=== PATIENT | female | born 1945 | race Caucasian/White ===

== ENCOUNTER 2017-06-05 11:12 | Emergency (ER) | payer MEDICARE ==
[2017-06-05] MEDS ORDERED: HYDROcodone/Acetaminophen 10/325 mg Tablet ONE (11:21)
--- NOTE | 2017-06-05 15:51 | RAD ---
RIGHT ANKLE THREE VIEWS: Date: 06-05-17 FINDINGS: A fracture of the distal fibula at the lateral malleolus is present with lateral displacement of the distal fragment. Additionally, there is a fracture through the distal tibia that extends into the t ibiotalar joint. There is slight displacement of this fracture. The calcaneus appears intact. A calc aneal spur is seen. IMPRESSION: Fractures of the distal tibia and fibula. POS: HOME
--- NOTE | 2017-06-05 15:55 | RAD ---
RIGHT KNEE FOUR VIEWS: Date: 06-05-17 FINDINGS: No acute fracture or joint effusion was seen. Small osteophytes are seen in the patellofemoral joint as well as some very ones in the knee joint itself. One of the oblique views had some unusual lines along the lateral tibial plateau, but in the absent of joint fluid it is difficult for me to believ e that these are acute. It would take an MRI to fully assess the patient's knee and that should be c onsidered if there is continued pain here. IMPRESSION: Probably no acute findings. POS: HOME
== END 2017-06-05 12:20 | disposition home or self-care (01) ==
LOC: BURERS 11:12
DX: S82.841A Displaced bimalleolar fracture of right lower leg, initial encounter for closed fracture (principal); E11.9 Type 2 diabetes mellitus without complications; I10 Essential (primary) hypertension; J45.909 Unspecified asthma, uncomplicated; F32.9 Major depressive disorder, single episode, unspecified; Z79.84 Long term (current) use of oral hypoglycemic drugs; Z79.899 Other long term (current) drug therapy; W22.09XA Striking against other stationary object, initial encounter

== ENCOUNTER 2018-11-28 23:42 | Emergency (ER) | payer MEDICARE ==
[2018-11-29] MEDS ORDERED: Nitroglycerin 50 MG/250 ML BOT 250 ML ONE (00:14)
[2018-11-29 00:32] LABS: Hemoglobin 10.9 g/dL (12.0-16.0); Mean Corpuscular HGB CONC 31.3 g/dL (32.0-36.0); Mean Corpuscular Volume 86.5 fL (78.0-98.0); Mean Platelet Volume 8.6 fL (7.4-10.4); Platelet Count 317 thou/uL (130-400); RBC Distribution Width 16.6 % (11.5-14.5); Red Blood Cell (RBC) Count 4.02 mill/uL (4.20-5.40); White Blood Cell (WBC) Count 8.6 thou/uL (4.8-10.8)
[2018-11-29 00:38] LABS: AST (SGOT) 17 U/L (5-34); Albumin 4.2 g/dL (3.4-4.8); Alkaline Phosphatase 187 U/L (40-150); Anion Gap 15 mmol/L (10-20); BUN (Urea Nitrogen) 30 mg/dL (9.8-20.1); Bilirubin, Total Less than 0.2 mg/dL (0.2-1.2); Calc. Creatinine Clearance 0 mL/min (70-130); Calcium 9.3 mg/dL (7.8-10.44); Carbon Dioxide 23 mmol/L (23-31); Chloride 104 mmol/L (98-107); Estimated GFR-MDRD 48; Globulin 3.3 g/dL (2.4-3.5); Glucose 197 mg/dL (83-110); Lipase 21 U/L (8-78); Potassium 4.3 mmol/L (3.5-5.1); Protein, Total 7.5 g/dL (6.0-8.3); Sodium 138 mmol/L (136-145)
[2018-11-29 00:49] LABS: Manual Diff?? YES
[2018-11-29 00:50] LABS: Anisocytosis SLIGHT = 6-15 cells (100X) (0-5/hpf); Band 2 % (5-11); Eosinophils 1 % (0-10); Hypochromia SLIGHT = 6-15 cells (100X) (0-5/hpf); Lymphocytes 47 % (21-51); Monocytes 3 % (0-10); Neutrophil 47 % (42-75); Platelet Morphology Comment Appears Adequate
[2018-11-29 00:51] LABS: MDiff Complete? YES
[2018-11-29 01:03] LABS: ALT (SGPT) 8 U/L (8-55)
--- NOTE | 2018-11-29 08:05 | RAD ---
PORTABLE CHEST: DATE: 11/29/2018. FINDINGS: An AP portable film at 0013 shows a normal-sized heart and clear lungs. No infiltrate or effusion wa s seen. There is no vascular congestion or edema. A calcified granuloma is noted in the left mid amandeep ng. IMPRESSION: No acute findings. POS: HOME
== END 2018-11-29 01:15 | disposition short-term general hospital (02) ==
LOC: BURERS 23:42
DX: R07.2 Precordial pain (principal); E11.9 Type 2 diabetes mellitus without complications; I10 Essential (primary) hypertension; J45.909 Unspecified asthma, uncomplicated; I49.9 Cardiac arrhythmia, unspecified; K21.9 Gastro-esophageal reflux disease without esophagitis; F32.9 Major depressive disorder, single episode, unspecified; Z79.82 Long term (current) use of aspirin; Z79.899 Other long term (current) drug therapy; Z79.84 Long term (current) use of oral hypoglycemic drugs
CPT/HCPCS: 36416; 71045; 80053; 83690; 84484; 85025; 85379; 93005; 94760; 96374

== ENCOUNTER 2022-06-18 21:03 | Emergency (ER) | payer MEDICARE ==
[2022-06-18] MEDS ORDERED: Morphine 2 MG/ML VIAL ONE ×2 (21:27→23:21)
[2022-06-18] MEDS ORDERED: Ondansetron ODT 4 MG TAB ONE (21:27)
[2022-06-18] MEDS ORDERED: Fentanyl 100 MCG/2 ML VIAL ONE (22:15)
[2022-06-18 22:17] LABS: #Basophils 0.1 thou/uL (0.0-0.2); #Eosinphils 0.2 thou/uL (0.0-0.7); #Lymphocytes 4.3 thou/uL (1.20-3.40); #Monocytes 1.1 thou/uL (0.11-0.59); %Basophils 0.7 % (0.0-1.0); %Eosinophils 0.9 % (0.0-10.0); %Lymphocytes 25.8 % (21.0-51.0); %Monocytes 6.8 % (0.0-10.0); %Neutrophils 65.8 % (42.0-75.0); ALT (SGPT) 21 U/L (8-55); AST (SGOT) 23 U/L (5-34); Albumin 4.2 g/dL (3.4-4.8); Alkaline Phosphatase 113 U/L (40-110); Anion Gap 18 mmol/L (10-20); BUN (Urea Nitrogen) 19 mg/dL (9.8-20.1); Bilirubin, Total 0.3 mg/dL (0.2-1.2); Calc. Creatinine Clearance 0 mL/min (70-130); Calcium 9.2 mg/dL (7.8-10.44); Carbon Dioxide 21 mmol/L (23-31); Chloride 105 mmol/L (98-107); Estimated GFR 65; Globulin 3.4 g/dL (2.4-3.5); Glucose 180 mg/dL (83-110); Hemoglobin 12.8 g/dL (12.0-16.0); Mean Corpuscular Hemoglobin 29.4 pg (27.0-31.0); Mean Corpuscular Volume 91.8 fl (78.0-98.0); Mean Platelet Volume 8.3 fL (7.4-10.4); Platelet Count 306 10x3/uL (130-400); Potassium 4.4 mmol/L (3.5-5.1); Protein, Total 7.6 g/dL (5.8-8.1); RBC Distribution Width 13.1 % (11.5-14.5); Red Blood Cell (RBC) Count 4.34 mill/uL (4.20-5.40); Sodium 140 mmol/L (136-145); White Blood Cell (WBC) Count 16.7 10x3/uL (4.8-10.8)
[2022-06-18] MEDS ORDERED: Ondansetron PF 4 MG/2 ML Vial ONE (22:54)
== END 2022-06-18 23:50 | disposition short-term general hospital (02) ==
LOC: BURERS 21:03
DX: S52.501A Unspecified fracture of the lower end of right radius, initial encounter for closed fracture (principal); S72.001A Fracture of unspecified part of neck of right femur, initial encounter for closed fracture; S00.03XA Contusion of scalp, initial encounter; E11.9 Type 2 diabetes mellitus without complications; I10 Essential (primary) hypertension; W17.89XA Other fall from one level to another, initial encounter
CPT/HCPCS: 25600; 51702; 70450; 73110; 73502; 80053; 85025; 96372; 96374; 96375; 99285; J2270; 36415; J2405; J3010; Q0162

== ENCOUNTER 2022-06-25 10:40 | Inpatient (IN) | payer MEDICARE ==
[2022-06-25 16:56] VITALS: BMI 27.5
[2022-06-25] MEDS ORDERED: Ibuprofen 200 MG TAB PO SCH (21:15)
[2022-06-25] MEDS ORDERED: Bisacodyl 10 MG SUPP PR PRN (22:52)
[2022-06-25] MEDS ORDERED: CLIDINIUM BR PO PRN (22:52)
[2022-06-25] MEDS ORDERED: CHLORDIAZEPOXIDE PO PRN (22:52)
[2022-06-25] MEDS ORDERED: Dextrose 50% Abboject 50 ML SYRINGE SLOW IVP PRN (22:57)
[2022-06-25] MEDS ORDERED: Dextrose 5% in Water 1,000 ML IV PRN (22:57)
[2022-06-25] MEDS: diphenhydrAMINE 25 MG CAP PO PRN (23:27)
[2022-06-25] MEDS: Acetaminophen 500 MG TAB PO SCH (23:27)
[2022-06-26] MEDS: Acetaminophen 500 MG TAB PO SCH ×4 (05:34→23:58)
[2022-06-26] MEDS: Sertraline 25 MG TAB PO SCH (10:01)
[2022-06-26] MEDS: Gabapentin 100 MG CAP PO SCH ×3 (10:02→21:14)
[2022-06-26] MEDS: Aspirin 81 mg Enteric Coated Tablet PO SCH ×2 (10:03→21:10)
[2022-06-26] MEDS: Ibuprofen 200 MG TAB PO SCH ×3 (10:03→17:36)
[2022-06-26] MEDS: Amlodipine 5 MG TAB PO SCH (10:04)
[2022-06-26] MEDS: Ascorbic Acid 500 mg Chewable Tablet PO SCH (10:06)
[2022-06-26] MEDS: Ferrous Sulfate 325 MG TAB PO SCH (10:06)
[2022-06-26] MEDS: glipiZIDE 5 MG TAB PO SCH ×2 (10:07→17:38)
[2022-06-26] MEDS: Senokot S 8.6-50 MG TAB PO SCH ×2 (10:07→21:10)
[2022-06-26] MEDS: Calcium Carbonate 500 MG TAB PO SCH (10:07)
[2022-06-26] MEDS: Zinc Sulfate 220 MG CAP PO SCH (10:08)
[2022-06-26] MEDS: Lisinopril 20 MG TAB PO SCH (10:08)
[2022-06-26] MEDS: metFORMIN 500 MG TAB PO SCH ×2 (10:10→17:37)
[2022-06-26] MEDS: Atorvastatin Calcium 10 MG TAB PO SCH (10:24)
[2022-06-26] MEDS: HumaLOG 300 UNITS/3 ML VIAL SC PRN ×2 (11:54→13:54)
[2022-06-26] MEDS: Hydrocortisone 1% Cream 30 GM TUBE TOP SCH ×2 (12:16→21:10)
[2022-06-26] MEDS: (Mecobalamin [B12 Active] 1,000 MCG Tab.Chew) PO SCH (12:16)
[2022-06-26] MEDS: Melatonin 3 MG TAB PO SCH (21:10)
[2022-06-27] MEDS: Acetaminophen 500 MG TAB PO SCH ×3 (05:48→17:33)
[2022-06-27] MEDS: Ibuprofen 200 MG TAB PO SCH ×3 (09:31→17:26)
[2022-06-27] MEDS: glipiZIDE 5 MG TAB PO SCH ×2 (09:32→17:27)
[2022-06-27] MEDS: Gabapentin 100 MG CAP PO SCH ×3 (09:34→20:53)
[2022-06-27] MEDS: Sertraline 25 MG TAB PO SCH (09:35)
[2022-06-27] MEDS: Ascorbic Acid 500 mg Chewable Tablet PO SCH (09:35)
[2022-06-27] MEDS: Calcium Carbonate 500 MG TAB PO SCH (09:36)
[2022-06-27] MEDS: Ferrous Sulfate 325 MG TAB PO SCH (09:37)
[2022-06-27] MEDS: metFORMIN 500 MG TAB PO SCH ×2 (09:37→17:26)
[2022-06-27] MEDS: Zinc Sulfate 220 MG CAP PO SCH (09:38)
[2022-06-27] MEDS: Senokot S 8.6-50 MG TAB PO SCH ×2 (09:38→20:52)
[2022-06-27] MEDS: Atorvastatin Calcium 10 MG TAB PO SCH (10:19)
[2022-06-27] MEDS: Aspirin 81 mg Enteric Coated Tablet PO SCH ×2 (10:19→20:52)
[2022-06-27] MEDS: Amlodipine 5 MG TAB PO SCH (10:20)
[2022-06-27] MEDS: Lisinopril 20 MG TAB PO SCH (10:23)
[2022-06-27] MEDS: (Mecobalamin [B12 Active] 1,000 MCG Tab.Chew) PO SCH (10:30)
[2022-06-27] MEDS: HumaLOG 300 UNITS/3 ML VIAL SC PRN ×4 (10:35→20:54)
[2022-06-27] MEDS: Hydrocortisone 1% Cream 30 GM TUBE TOP SCH (10:40)
[2022-06-27] MEDS: Melatonin 3 MG TAB PO SCH (20:52)
[2022-06-28] MEDS: Acetaminophen 500 MG TAB PO SCH ×5 (00:13→23:57)
[2022-06-28] MEDS: Hydrocortisone 1% Cream 30 GM TUBE TOP SCH ×3 (00:28→21:03)
[2022-06-28] MEDS: Cyclobenzaprine 10 MG TAB PO PRN ×3 (00:31→20:56)
[2022-06-28] MEDS: Ibuprofen 200 MG TAB PO SCH ×3 (08:58→17:00)
[2022-06-28] MEDS: metFORMIN 500 MG TAB PO SCH ×2 (08:58→17:01)
[2022-06-28] MEDS: Amlodipine 5 MG TAB PO SCH (09:00)
[2022-06-28] MEDS: Sertraline 25 MG TAB PO SCH (09:01)
[2022-06-28] MEDS: Ferrous Sulfate 325 MG TAB PO SCH (09:02)
[2022-06-28] MEDS: Gabapentin 100 MG CAP PO SCH ×3 (09:02→20:56)
[2022-06-28] MEDS: Ascorbic Acid 500 mg Chewable Tablet PO SCH (09:02)
[2022-06-28] MEDS: Aspirin 81 mg Enteric Coated Tablet PO SCH ×2 (09:02→20:57)
[2022-06-28] MEDS: Calcium Carbonate 500 MG TAB PO SCH (09:02)
[2022-06-28] MEDS: glipiZIDE 5 MG TAB PO SCH ×2 (09:02→17:01)
[2022-06-28] MEDS: Zinc Sulfate 220 MG CAP PO SCH (09:02)
[2022-06-28] MEDS: Atorvastatin Calcium 10 MG TAB PO SCH (09:02)
[2022-06-28] MEDS: Lisinopril 20 MG TAB PO SCH (09:03)
[2022-06-28] MEDS: (Mecobalamin [B12 Active] 1,000 MCG Tab.Chew) PO SCH (09:04)
[2022-06-28] MEDS: Senokot S 8.6-50 MG TAB PO SCH ×2 (09:04→20:56)
[2022-06-28] MEDS: HumaLOG 300 UNITS/3 ML VIAL SC PRN ×3 (09:05→17:01)
[2022-06-28] MEDS: Melatonin 3 MG TAB PO SCH (20:57)
[2022-06-29] MEDS: Acetaminophen 500 MG TAB PO SCH ×4 (05:39→23:13)
[2022-06-29] MEDS: Senokot S 8.6-50 MG TAB PO SCH ×2 (09:11→21:41)
[2022-06-29] MEDS: Sertraline 25 MG TAB PO SCH (09:12)
[2022-06-29] MEDS: Ibuprofen 200 MG TAB PO SCH ×3 (09:12→17:15)
[2022-06-29] MEDS: metFORMIN 500 MG TAB PO SCH ×2 (09:13→17:15)
[2022-06-29] MEDS: Calcium Carbonate 500 MG TAB PO SCH (09:13)
[2022-06-29] MEDS: Lisinopril 20 MG TAB PO SCH (09:13)
[2022-06-29] MEDS: Amlodipine 5 MG TAB PO SCH (09:14)
[2022-06-29] MEDS: Gabapentin 100 MG CAP PO SCH ×3 (09:15→21:40)
[2022-06-29] MEDS: Aspirin 81 mg Enteric Coated Tablet PO SCH ×2 (09:16→21:42)
[2022-06-29] MEDS: Ferrous Sulfate 325 MG TAB PO SCH (09:16)
[2022-06-29] MEDS: Zinc Sulfate 220 MG CAP PO SCH (09:16)
[2022-06-29] MEDS: glipiZIDE 5 MG TAB PO SCH ×2 (09:16→17:15)
[2022-06-29] MEDS: Ascorbic Acid 500 mg Chewable Tablet PO SCH (09:16)
[2022-06-29] MEDS: (Mecobalamin [B12 Active] 1,000 MCG Tab.Chew) PO SCH (09:17)
[2022-06-29] MEDS: Atorvastatin Calcium 10 MG TAB PO SCH (09:24)
[2022-06-29] MEDS: HumaLOG 300 UNITS/3 ML VIAL SC PRN ×3 (12:06→21:39)
[2022-06-29] MEDS: Hydrocortisone 1% Cream 30 GM TUBE TOP SCH ×2 (14:56→21:40)
[2022-06-29] MEDS: Melatonin 3 MG TAB PO SCH (21:42)
[2022-06-29] MEDS: Cyclobenzaprine 10 MG TAB PO PRN (23:14)
[2022-06-30] MEDS: Acetaminophen 500 MG TAB PO SCH ×4 (05:47→23:05)
[2022-06-30] MEDS: Sertraline 100 MG TAB PO SCH (09:12)
[2022-06-30] MEDS: Atorvastatin Calcium 10 MG TAB PO SCH (09:13)
[2022-06-30] MEDS: Gabapentin 100 MG CAP PO SCH ×3 (09:13→20:36)
[2022-06-30] MEDS: Ferrous Sulfate 325 MG TAB PO SCH (09:13)
[2022-06-30] MEDS: metFORMIN 500 MG TAB PO SCH ×2 (09:13→17:15)
[2022-06-30] MEDS: Hydrocortisone 1% Cream 30 GM TUBE TOP SCH ×2 (09:13→20:38)
[2022-06-30] MEDS: Zinc Sulfate 220 MG CAP PO SCH (09:14)
[2022-06-30] MEDS: Lisinopril 20 MG TAB PO SCH (09:14)
[2022-06-30] MEDS: Ibuprofen 200 MG TAB PO SCH ×3 (09:14→17:14)
[2022-06-30] MEDS: Amlodipine 5 MG TAB PO SCH (09:15)
[2022-06-30] MEDS: Senokot S 8.6-50 MG TAB PO SCH ×2 (09:15→20:38)
[2022-06-30] MEDS: Ascorbic Acid 500 mg Chewable Tablet PO SCH (09:15)
[2022-06-30] MEDS: Aspirin 81 mg Enteric Coated Tablet PO SCH ×2 (09:15→20:35)
[2022-06-30] MEDS: glipiZIDE 5 MG TAB PO SCH ×2 (09:17→17:15)
[2022-06-30] MEDS: Calcium Carbonate 500 MG TAB PO SCH (09:17)
[2022-06-30] MEDS: HumaLOG 300 UNITS/3 ML VIAL SC PRN ×2 (09:21→12:11)
[2022-06-30 17:27] LABS: Bilirubin Negative (Negative); Blood, Urine Small (Negative); Clarity Slightly Cloudy (Clear); Glucose, Urine (Dipstick) Negative (Negative); Ketone, Urine Trace mg/dL (Negative); Leukocyte Large (Negative); Nitrite Positive (Negative); Protein, Urine (Dipstick) 30 mg/dL (Neg-Trace); Specific Gravity, Urine 1.015 (1.005-1.030); Urobilinogen 0.2 mg/dL (Less than 2); pH, Urine 5.5 (5.0-9.0)
[2022-06-30 17:36] LABS: Bacteria/HPF 4+ HPF (None Seen)
[2022-06-30] MEDS ORDERED: Albuterol Sulfate 2.5 mg/3 ml Neb NEB PRN (20:21)
[2022-06-30] MEDS: Sulfameth/Trimethoprim DS 800-160mg TAB PO SCH (20:35)
[2022-06-30] MEDS: Cyclobenzaprine 10 MG TAB PO PRN (20:35)
[2022-06-30] MEDS: Melatonin 3 MG TAB PO SCH (20:37)
[2022-06-30] MEDS: Nystatin 500,000 UNITS/5 ML UDCUP SSW SCH (23:05)
[2022-07-01] MEDS: diphenhydrAMINE 25 MG CAP PO PRN (00:25)
[2022-07-01] MEDS: Cyclobenzaprine 10 MG TAB PO PRN (02:40)
[2022-07-01] MEDS: Acetaminophen 500 MG TAB PO SCH ×4 (05:43→23:12)
[2022-07-01] MEDS: metFORMIN 500 MG TAB PO SCH ×2 (09:04→17:41)
[2022-07-01] MEDS: Lisinopril 20 MG TAB PO SCH (09:04)
[2022-07-01] MEDS: Aspirin 81 mg Enteric Coated Tablet PO SCH ×2 (09:04→20:23)
[2022-07-01] MEDS: Ibuprofen 200 MG TAB PO SCH ×3 (09:04→17:42)
[2022-07-01] MEDS: Amlodipine 5 MG TAB PO SCH (09:06)
[2022-07-01] MEDS: Calcium Carbonate 500 MG TAB PO SCH (09:07)
[2022-07-01] MEDS: Senokot S 8.6-50 MG TAB PO SCH ×2 (09:07→20:23)
[2022-07-01] MEDS: Atorvastatin Calcium 10 MG TAB PO SCH (09:07)
[2022-07-01] MEDS: glipiZIDE 5 MG TAB PO SCH ×2 (09:08→17:41)
[2022-07-01] MEDS: Sertraline 100 MG TAB PO SCH (09:08)
[2022-07-01] MEDS: Sulfameth/Trimethoprim DS 800-160mg TAB PO SCH ×2 (09:09→20:24)
[2022-07-01] MEDS: Zinc Sulfate 220 MG CAP PO SCH (09:09)
[2022-07-01] MEDS: Ascorbic Acid 500 mg Chewable Tablet PO SCH (09:09)
[2022-07-01] MEDS: Ferrous Sulfate 325 MG TAB PO SCH (09:09)
[2022-07-01] MEDS: Gabapentin 100 MG CAP PO SCH ×3 (09:12→20:24)
[2022-07-01] MEDS: Hydrocortisone 1% Cream 30 GM TUBE TOP SCH ×2 (09:13→20:22)
[2022-07-01] MEDS: Nystatin 500,000 UNITS/5 ML UDCUP SSW SCH ×4 (09:14→20:23)
[2022-07-01] MEDS: HumaLOG 300 UNITS/3 ML VIAL SC PRN ×3 (09:47→20:25)
[2022-07-01] MEDS: Melatonin 3 MG TAB PO SCH (20:23)
[2022-07-02] MEDS: Cyclobenzaprine 10 MG TAB PO PRN (01:11)
[2022-07-02] MEDS: diphenhydrAMINE 25 MG CAP PO PRN ×2 (02:34→22:25)
[2022-07-02] MEDS: Acetaminophen 500 MG TAB PO SCH ×5 (06:24→22:26)
[2022-07-02] MEDS: HumaLOG 300 UNITS/3 ML VIAL SC PRN ×2 (09:26→12:05)
[2022-07-02] MEDS: Hydrocortisone 1% Cream 30 GM TUBE TOP SCH ×2 (09:27→20:52)
[2022-07-02] MEDS: Sertraline 100 MG TAB PO SCH (09:27)
[2022-07-02] MEDS: Ibuprofen 200 MG TAB PO SCH ×3 (09:28→17:15)
[2022-07-02] MEDS: Aspirin 81 mg Enteric Coated Tablet PO SCH ×2 (09:28→20:55)
[2022-07-02] MEDS: Senokot S 8.6-50 MG TAB PO SCH ×2 (09:30→20:56)
[2022-07-02] MEDS: Calcium Carbonate 500 MG TAB PO SCH (09:30)
[2022-07-02] MEDS: Ferrous Sulfate 325 MG TAB PO SCH (09:30)
[2022-07-02] MEDS: Zinc Sulfate 220 MG CAP PO SCH (09:31)
[2022-07-02] MEDS: Ascorbic Acid 500 mg Chewable Tablet PO SCH (09:31)
[2022-07-02] MEDS: Atorvastatin Calcium 10 MG TAB PO SCH (09:31)
[2022-07-02] MEDS: Sulfameth/Trimethoprim DS 800-160mg TAB PO SCH ×2 (09:31→20:53)
[2022-07-02] MEDS: Amlodipine 5 MG TAB PO SCH (09:32)
[2022-07-02] MEDS: glipiZIDE 5 MG TAB PO SCH ×2 (09:33→17:15)
[2022-07-02] MEDS: metFORMIN 500 MG TAB PO SCH ×2 (09:33→17:15)
[2022-07-02] MEDS: Lisinopril 20 MG TAB PO SCH (09:34)
[2022-07-02] MEDS: Nystatin 500,000 UNITS/5 ML UDCUP SSW SCH ×4 (09:35→20:53)
[2022-07-02] MEDS: Gabapentin 100 MG CAP PO SCH ×3 (12:04→20:54)
[2022-07-02] MEDS: Melatonin 3 MG TAB PO SCH (20:55)
[2022-07-03] MEDS: Acetaminophen 500 MG TAB PO SCH ×4 (05:35→23:06)
[2022-07-03] MEDS ORDERED: Amlodipine 5 MG TAB ONE (10:04)
[2022-07-03] MEDS: Sulfameth/Trimethoprim DS 800-160mg TAB PO SCH ×2 (10:09→20:34)
[2022-07-03] MEDS: glipiZIDE 5 MG TAB PO SCH ×2 (10:09→17:17)
[2022-07-03] MEDS: Nystatin 500,000 UNITS/5 ML UDCUP SSW SCH ×4 (10:10→20:35)
[2022-07-03] MEDS: Calcium Carbonate 500 MG TAB PO SCH (10:10)
[2022-07-03] MEDS: Sertraline 100 MG TAB PO SCH (10:10)
[2022-07-03] MEDS: Senokot S 8.6-50 MG TAB PO SCH ×2 (10:10→20:35)
[2022-07-03] MEDS: Aspirin 81 mg Enteric Coated Tablet PO SCH ×2 (10:10→20:34)
[2022-07-03] MEDS: metFORMIN 500 MG TAB PO SCH ×2 (10:10→17:17)
[2022-07-03] MEDS: Ferrous Sulfate 325 MG TAB PO SCH (10:11)
[2022-07-03] MEDS: Amlodipine 5 MG TAB PO SCH (10:11)
[2022-07-03] MEDS: Ascorbic Acid 500 mg Chewable Tablet PO SCH (10:12)
[2022-07-03] MEDS: Atorvastatin Calcium 10 MG TAB PO SCH (10:12)
[2022-07-03] MEDS: Lisinopril 20 MG TAB PO SCH (10:12)
[2022-07-03] MEDS: Ibuprofen 200 MG TAB PO SCH ×3 (10:12→17:18)
[2022-07-03] MEDS: Gabapentin 100 MG CAP PO SCH ×3 (10:13→20:34)
[2022-07-03] MEDS: Zinc Sulfate 220 MG CAP PO SCH (10:14)
[2022-07-03] MEDS: Hydrocortisone 1% Cream 30 GM TUBE TOP SCH ×2 (10:24→20:37)
[2022-07-03] MEDS: HumaLOG 300 UNITS/3 ML VIAL SC PRN (13:00)
[2022-07-03] MEDS: Melatonin 3 MG TAB PO SCH (20:34)
[2022-07-03] MEDS: Cyclobenzaprine 10 MG TAB PO PRN (23:07)
[2022-07-04] MEDS: diphenhydrAMINE 25 MG CAP PO PRN ×2 (02:34→23:08)
[2022-07-04] MEDS: Acetaminophen 500 MG TAB PO SCH ×4 (06:58→23:10)
[2022-07-04] MEDS: Senokot S 8.6-50 MG TAB PO SCH ×2 (07:45→21:15)
[2022-07-04] MEDS ORDERED: Amlodipine 5 MG TAB ONE (08:02)
[2022-07-04] MEDS: HumaLOG 300 UNITS/3 ML VIAL SC PRN ×2 (10:03→12:14)
[2022-07-04] MEDS: Calcium Carbonate 500 MG TAB PO SCH (10:04)
[2022-07-04] MEDS: glipiZIDE 5 MG TAB PO SCH ×2 (10:04→16:44)
[2022-07-04] MEDS: Ferrous Sulfate 325 MG TAB PO SCH (10:04)
[2022-07-04] MEDS: metFORMIN 500 MG TAB PO SCH ×2 (10:04→16:44)
[2022-07-04] MEDS: Sulfameth/Trimethoprim DS 800-160mg TAB PO SCH ×2 (10:04→21:13)
[2022-07-04] MEDS: Ibuprofen 200 MG TAB PO SCH ×3 (10:04→16:44)
[2022-07-04] MEDS: Atorvastatin Calcium 10 MG TAB PO SCH (10:05)
[2022-07-04] MEDS: Gabapentin 100 MG CAP PO SCH ×3 (10:05→21:13)
[2022-07-04] MEDS: Sertraline 100 MG TAB PO SCH (10:06)
[2022-07-04] MEDS: Ascorbic Acid 500 mg Chewable Tablet PO SCH (10:06)
[2022-07-04] MEDS: Aspirin 81 mg Enteric Coated Tablet PO SCH ×2 (10:07→21:13)
[2022-07-04] MEDS: Hydrocortisone 1% Cream 30 GM TUBE TOP SCH ×2 (10:07→21:14)
[2022-07-04] MEDS: Zinc Sulfate 220 MG CAP PO SCH (10:07)
[2022-07-04] MEDS: Nystatin 500,000 UNITS/5 ML UDCUP SSW SCH ×4 (10:07→21:15)
[2022-07-04] MEDS: Amlodipine 5 MG TAB PO SCH (10:13)
[2022-07-04] MEDS: Lisinopril 20 MG TAB PO SCH (10:14)
[2022-07-04] MEDS: Melatonin 3 MG TAB PO SCH (21:13)
[2022-07-05] MEDS: Acetaminophen 500 MG TAB PO SCH ×4 (05:13→23:07)
[2022-07-05] MEDS: Aspirin 81 mg Enteric Coated Tablet PO SCH ×2 (09:00→20:10)
[2022-07-05] MEDS: Calcium Carbonate 500 MG TAB PO SCH (09:00)
[2022-07-05] MEDS: Hydrocortisone 1% Cream 30 GM TUBE TOP SCH ×2 (09:00→20:10)
[2022-07-05] MEDS: glipiZIDE 5 MG TAB PO SCH ×2 (09:00→17:35)
[2022-07-05] MEDS: Amlodipine 5 MG TAB PO SCH (09:01)
[2022-07-05] MEDS: Ferrous Sulfate 325 MG TAB PO SCH (09:04)
[2022-07-05] MEDS: Sulfameth/Trimethoprim DS 800-160mg TAB PO SCH ×2 (09:04→20:09)
[2022-07-05] MEDS: Ibuprofen 200 MG TAB PO SCH ×3 (09:04→17:35)
[2022-07-05] MEDS: Nystatin 500,000 UNITS/5 ML UDCUP SSW SCH ×4 (09:04→20:09)
[2022-07-05] MEDS: Atorvastatin Calcium 10 MG TAB PO SCH (09:05)
[2022-07-05] MEDS: Sertraline 100 MG TAB PO SCH (09:05)
[2022-07-05] MEDS: metFORMIN 500 MG TAB PO SCH ×2 (09:05→17:35)
[2022-07-05] MEDS: Zinc Sulfate 220 MG CAP PO SCH (09:06)
[2022-07-05] MEDS: Lisinopril 20 MG TAB PO SCH (09:06)
[2022-07-05] MEDS: Gabapentin 100 MG CAP PO SCH ×3 (09:06→20:09)
[2022-07-05] MEDS: Ascorbic Acid 500 mg Chewable Tablet PO SCH (09:06)
[2022-07-05] MEDS: Senokot S 8.6-50 MG TAB PO SCH ×2 (09:07→21:00)
[2022-07-05] MEDS: HumaLOG 300 UNITS/3 ML VIAL SC PRN (12:10)
[2022-07-05 15:30] LABS: CAUTI Indications for Culture Pelvic or flank pain
[2022-07-05 15:31] LABS: Urine Culture Reflex Yes Yes
[2022-07-05] MEDS: Melatonin 3 MG TAB PO SCH (20:10)
[2022-07-05] MEDS: diphenhydrAMINE 25 MG CAP PO PRN (23:07)
[2022-07-06] MEDS: Acetaminophen 500 MG TAB PO SCH ×4 (05:09→23:19)
[2022-07-06] MEDS: Amlodipine 5 MG TAB PO SCH (09:20)
[2022-07-06] MEDS: Sertraline 100 MG TAB PO SCH (09:21)
[2022-07-06] MEDS: glipiZIDE 5 MG TAB PO SCH ×2 (09:21→17:20)
[2022-07-06] MEDS: Gabapentin 100 MG CAP PO SCH ×3 (09:22→20:35)
[2022-07-06] MEDS: Calcium Carbonate 500 MG TAB PO SCH (09:23)
[2022-07-06] MEDS: Ibuprofen 200 MG TAB PO SCH ×3 (09:23→17:20)
[2022-07-06] MEDS: Atorvastatin Calcium 10 MG TAB PO SCH (09:23)
[2022-07-06] MEDS: Ferrous Sulfate 325 MG TAB PO SCH (09:24)
[2022-07-06] MEDS: Ascorbic Acid 500 mg Chewable Tablet PO SCH (09:24)
[2022-07-06] MEDS: Aspirin 81 mg Enteric Coated Tablet PO SCH ×2 (09:24→20:35)
[2022-07-06] MEDS: metFORMIN 500 MG TAB PO SCH ×2 (09:24→17:20)
[2022-07-06] MEDS: Zinc Sulfate 220 MG CAP PO SCH (09:24)
[2022-07-06] MEDS: Lisinopril 20 MG TAB PO SCH (09:24)
[2022-07-06] MEDS: Nystatin 500,000 UNITS/5 ML UDCUP SSW SCH ×4 (09:24→20:34)
[2022-07-06] MEDS: Sulfameth/Trimethoprim DS 800-160mg TAB PO SCH ×2 (09:24→20:36)
[2022-07-06] MEDS: Senokot S 8.6-50 MG TAB PO SCH ×2 (09:25→20:37)
[2022-07-06] MEDS: Hydrocortisone 1% Cream 30 GM TUBE TOP SCH ×2 (09:36→20:36)
[2022-07-06] MEDS: HumaLOG 300 UNITS/3 ML VIAL SC PRN (12:52)
[2022-07-06] MEDS: Melatonin 3 MG TAB PO SCH (20:36)
[2022-07-06] MEDS: diphenhydrAMINE 25 MG CAP PO PRN (23:19)
[2022-07-07] MEDS: Acetaminophen 500 MG TAB PO SCH ×3 (05:27→17:11)
[2022-07-07] MEDS: Hydrocortisone 1% Cream 30 GM TUBE TOP SCH ×2 (09:14→21:01)
[2022-07-07] MEDS: Nystatin 500,000 UNITS/5 ML UDCUP SSW SCH ×4 (09:14→21:00)
[2022-07-07] MEDS: Calcium Carbonate 500 MG TAB PO SCH (09:15)
[2022-07-07] MEDS: Senokot S 8.6-50 MG TAB PO SCH ×2 (09:15→21:00)
[2022-07-07] MEDS: Sertraline 100 MG TAB PO SCH (09:15)
[2022-07-07] MEDS: Aspirin 81 mg Enteric Coated Tablet PO SCH ×2 (09:15→21:00)
[2022-07-07] MEDS: Sulfameth/Trimethoprim DS 800-160mg TAB PO SCH ×2 (09:15→21:00)
[2022-07-07] MEDS: Ibuprofen 200 MG TAB PO SCH ×3 (09:16→17:13)
[2022-07-07] MEDS: Zinc Sulfate 220 MG CAP PO SCH (09:17)
[2022-07-07] MEDS: Lisinopril 20 MG TAB PO SCH (09:18)
[2022-07-07] MEDS: Ferrous Sulfate 325 MG TAB PO SCH (09:19)
[2022-07-07] MEDS: Ascorbic Acid 500 mg Chewable Tablet PO SCH (09:19)
[2022-07-07] MEDS: glipiZIDE 5 MG TAB PO SCH ×2 (09:20→17:14)
[2022-07-07] MEDS: metFORMIN 500 MG TAB PO SCH ×2 (09:20→17:14)
[2022-07-07] MEDS: Amlodipine 5 MG TAB PO SCH (09:20)
[2022-07-07] MEDS: Gabapentin 100 MG CAP PO SCH ×3 (09:25→21:00)
[2022-07-07] MEDS: Atorvastatin Calcium 10 MG TAB PO SCH (09:26)
[2022-07-07] MEDS: HumaLOG 300 UNITS/3 ML VIAL SC PRN (12:04)
[2022-07-07] MEDS: Melatonin 3 MG TAB PO SCH (21:00)
[2022-07-08] MEDS: diphenhydrAMINE 25 MG CAP PO PRN (00:10)
[2022-07-08] MEDS: Acetaminophen 500 MG TAB PO SCH ×5 (00:10→23:59)
[2022-07-08] MEDS: Nystatin 500,000 UNITS/5 ML UDCUP SSW SCH ×4 (08:53→21:08)
[2022-07-08] MEDS: Zinc Sulfate 220 MG CAP PO SCH (08:54)
[2022-07-08] MEDS: Sertraline 100 MG TAB PO SCH (08:54)
[2022-07-08] MEDS: Amlodipine 5 MG TAB PO SCH (08:55)
[2022-07-08] MEDS: Aspirin 81 mg Enteric Coated Tablet PO SCH ×2 (08:56→21:06)
[2022-07-08] MEDS: metFORMIN 500 MG TAB PO SCH ×2 (08:56→17:10)
[2022-07-08] MEDS: Senokot S 8.6-50 MG TAB PO SCH ×2 (08:56→21:12)
[2022-07-08] MEDS: Ibuprofen 200 MG TAB PO SCH ×3 (08:56→17:09)
[2022-07-08] MEDS: Lisinopril 20 MG TAB PO SCH (08:56)
[2022-07-08] MEDS: Ascorbic Acid 500 mg Chewable Tablet PO SCH (08:57)
[2022-07-08] MEDS: Atorvastatin Calcium 10 MG TAB PO SCH (08:58)
[2022-07-08] MEDS: glipiZIDE 5 MG TAB PO SCH ×2 (08:58→17:09)
[2022-07-08] MEDS: Sulfameth/Trimethoprim DS 800-160mg TAB PO SCH (08:58)
[2022-07-08] MEDS: Ferrous Sulfate 325 MG TAB PO SCH (08:58)
[2022-07-08] MEDS: Calcium Carbonate 500 MG TAB PO SCH (08:58)
[2022-07-08] MEDS: Hydrocortisone 1% Cream 30 GM TUBE TOP SCH ×2 (08:59→21:07)
[2022-07-08] MEDS: Gabapentin 100 MG CAP PO SCH ×3 (09:11→21:06)
[2022-07-08] MEDS: HumaLOG 300 UNITS/3 ML VIAL SC PRN (12:22)
[2022-07-08] MEDS: Melatonin 3 MG TAB PO SCH (21:06)
[2022-07-09] MEDS: Acetaminophen 500 MG TAB PO SCH ×2 (04:45→11:39)
[2022-07-09 06:29] VITALS: TEMP 98.1
[2022-07-09] MEDS: Nystatin 500,000 UNITS/5 ML UDCUP SSW SCH ×2 (08:43→11:40)
[2022-07-09] MEDS: Zinc Sulfate 220 MG CAP PO SCH (08:44)
[2022-07-09] MEDS: Senokot S 8.6-50 MG TAB PO SCH (08:45)
[2022-07-09] MEDS: Aspirin 81 mg Enteric Coated Tablet PO SCH (08:45)
[2022-07-09] MEDS: Sertraline 100 MG TAB PO SCH (08:46)
[2022-07-09] MEDS: Amlodipine 5 MG TAB PO SCH (08:47)
[2022-07-09] MEDS: Ascorbic Acid 500 mg Chewable Tablet PO SCH (08:47)
[2022-07-09] MEDS: Lisinopril 20 MG TAB PO SCH (08:48)
[2022-07-09] MEDS: Ferrous Sulfate 325 MG TAB PO SCH (08:49)
[2022-07-09] MEDS: metFORMIN 500 MG TAB PO SCH (08:49)
[2022-07-09] MEDS: Calcium Carbonate 500 MG TAB PO SCH (08:49)
[2022-07-09] MEDS: Atorvastatin Calcium 10 MG TAB PO SCH (08:49)
[2022-07-09] MEDS: Gabapentin 100 MG CAP PO SCH (08:50)
[2022-07-09] MEDS: glipiZIDE 5 MG TAB PO SCH (08:51)
[2022-07-09 08:56] VITALS: BP 110/63
[2022-07-09] MEDS: Ibuprofen 200 MG TAB PO SCH ×2 (08:57→11:39)
[2022-07-09] MEDS: Hydrocortisone 1% Cream 30 GM TUBE TOP SCH (08:58)
== END 2022-07-09 12:45 | disposition home health service (06) | DRG 560 ==
LOC: BURMED 16:40
PROVIDERS: ADMIT Family Medicine; ATTEND Family Medicine
DX: S72.001D Fracture of unspecified part of neck of right femur, subsequent encounter for closed fracture with routine healing (principal); N39.0 Urinary tract infection, site not specified; S52.501D Unspecified fracture of the lower end of right radius, subsequent encounter for closed fracture with routine healing; W18.30XD Fall on same level, unspecified, subsequent encounter; I10 Essential (primary) hypertension; E78.5 Hyperlipidemia, unspecified; I25.10 Atherosclerotic heart disease of native coronary artery without angina pectoris; E11.51 Type 2 diabetes mellitus with diabetic peripheral angiopathy without gangrene; I65.22 Occlusion and stenosis of left carotid artery; Z79.84 Long term (current) use of oral hypoglycemic drugs; Z79.899 Other long term (current) drug therapy; Z79.82 Long term (current) use of aspirin; I25.2 Old myocardial infarction; Z90.49 Acquired absence of other specified parts of digestive tract; Z85.828 Personal history of other malignant neoplasm of skin; Z90.710 Acquired absence of both cervix and uterus; Z88.0 Allergy status to penicillin
CPT/HCPCS: 36416; 81001; 87077; 87086; 87186; 90471; 90732; G0009; J1815

== ENCOUNTER 2022-11-08 17:34 | Emergency (ER) | payer MEDICARE ==
[2022-11-08] MEDS ORDERED: Aspirin Chewable 81 MG TAB ONE (18:08)
[2022-11-08] MEDS ORDERED: Ondansetron PF 4 MG/2 ML Vial ONE (18:08)
[2022-11-08 18:10] LABS: Mean Corpuscular HGB CONC 30.5 g/dL (32.0-36.0); Mean Corpuscular Hemoglobin 26.1 pg (27.0-31.0); Mean Corpuscular Volume 85.4 fl (78.0-98.0); Mean Platelet Volume 6.2 fL (7.4-10.4); Platelet Count 384 10x3/uL (130-400); RBC Distribution Width 14.2 % (11.5-14.5); Red Blood Cell (RBC) Count 3.84 mill/uL (4.20-5.40); White Blood Cell (WBC) Count 10.5 10x3/uL (4.8-10.8)
[2022-11-08 18:16] LABS: PTT 35.4 sec (22.9-36.1); Prothrombin Time 13.6 sec (12.0-14.7)
[2022-11-08 18:19] LABS: ALT (SGPT) 9 U/L (8-55); AST (SGOT) 16 U/L (5-34); Albumin 3.7 g/dL (3.4-4.8); Alkaline Phosphatase 113 U/L (40-110); Anion Gap 15 mmol/L (10-20); BUN (Urea Nitrogen) 25 mg/dL (9.8-20.1); Bilirubin, Total 0.2 mg/dL (0.2-1.2); Calc. Creatinine Clearance 0 mL/min (70-130); Calcium 8.8 mg/dL (7.8-10.44); Carbon Dioxide 24 mmol/L (23-31); Chloride 101 mmol/L (98-107); Estimated GFR 65; Globulin 3.6 g/dL (2.4-3.5); Glucose 171 mg/dL (83-110); Lipase 6 U/L (8-78); Magnesium 1.5 mg/dL (1.6-2.6); Potassium 4.5 mmol/L (3.5-5.1); Protein, Total 7.3 g/dL (5.8-8.1); Sodium 135 mmol/L (136-145)
[2022-11-08 18:24] LABS: Band 5 % (5-11); Eosinophils 5 % (0-10); Lymphocytes 23 % (21-51); MDiff Complete? YES; Monocytes 5 % (0-10); Neutrophil 62 % (42-75); Platelet Morphology Comment Appears Adequate; RBC Morphology Normal
[2022-11-08] MEDS ORDERED: Magnesium Oxide 400 MG TAB ONE (18:33)
[2022-11-08] MEDS ORDERED: Ketorolac Tromethamine 30 MG/ML VIAL ONE (18:33)
== END 2022-11-08 20:35 | disposition home or self-care (01) ==
LOC: BURERS 17:34
DX: R07.89 Other chest pain (principal); E83.42 Hypomagnesemia; E11.9 Type 2 diabetes mellitus without complications; I10 Essential (primary) hypertension; K21.9 Gastro-esophageal reflux disease without esophagitis; Z79.899 Other long term (current) drug therapy; Z79.84 Long term (current) use of oral hypoglycemic drugs
CPT/HCPCS: 36415; 71045; 80053; 83690; 83735; 83880; 84484; 85025; 85610; 85730; 93005; 96374; 96375; J1885; J2405

== ENCOUNTER 2023-07-09 20:01 | Emergency (ER) | payer MEDICARE ==
[2023-07-09] MEDS ORDERED: Lidocaine 1% PF 5 ML VIAL ONE (20:20)
[2023-07-09] MEDS ORDERED: Boostrix 0.5 ML (Tdap) VIAL (>/=7 yrs of age) ONE (21:23)
[2023-07-09 21:46] LABS: Bilirubin Negative (Negative); Blood, Urine Negative (Negative); Clarity Clear (Clear); Glucose, Urine (Dipstick) Negative (Negative); Ketone, Urine Negative (Negative); Leukocyte Negative (Negative); Nitrite Negative (Negative); Protein, Urine (Dipstick) Negative (Neg-Trace); Urobilinogen 0.2 mg/dL (Less than 2); pH, Urine 5.5 (5.0-9.0)
[2023-07-09 21:58] LABS: Bacteria/HPF Rare-Few HPF (None Seen); CAUTI Indications for Culture Dysuria,urgency,freq; RBC/HPF None Seen HPF (0-3); Squamous Epithelial 0-3 HPF (0-3); Urine Culture Reflex No No; WBC/HPF 0-3 HPF (0-3)
== END 2023-07-09 22:20 | disposition home or self-care (01) ==
LOC: BURERS 20:01
DX: S01.81XA Laceration without foreign body of other part of head, initial encounter (principal); E11.9 Type 2 diabetes mellitus without complications; I10 Essential (primary) hypertension; W18.30XA Fall on same level, unspecified, initial encounter
CPT/HCPCS: 12013; 70450; 81001; 90471; 90715

== ENCOUNTER 2024-02-17 15:17 | Emergency (ER) | payer MEDICARE, OTHER ==
[2024-02-17] MEDS ORDERED: traMADol HCl 50 MG TAB ONE (15:49)
[2024-02-17] MEDS ORDERED: Naproxen 500 MG TAB ONE (15:49)
== END 2024-02-17 16:35 | disposition home or self-care (01) ==
LOC: BURERS 15:17
DX: S92.324A Nondisplaced fracture of second metatarsal bone, right foot, initial encounter for closed fracture (principal); S92.354A Nondisplaced fracture of fifth metatarsal bone, right foot, initial encounter for closed fracture; I10 Essential (primary) hypertension; E11.9 Type 2 diabetes mellitus without complications; W22.8XXA Striking against or struck by other objects, initial encounter; Y93.01 Activity, walking, marching and hiking

== ENCOUNTER 2025-08-07 10:32 | Emergency (ER) | payer MEDICARE ==
[2025-08-07] MEDS ORDERED: Ondansetron PF 4 MG/2 ML Vial ONE (10:49)
[2025-08-07] MEDS ORDERED: Ketorolac Tromethamine 30 MG (1 mL) VIAL ONE (10:49)
[2025-08-07 11:16] LABS: Hematocrit 42.8 % (36.0-47.0); Hemoglobin 13.4 g/dL (12.0-16.0); MDiff Complete? YES; Mean Corpuscular Hemoglobin 28.8 pg (27.0-31.0); Mean Corpuscular Volume 91.6 fl (78.0-98.0); Platelet Count 265 10x3/uL (130-400); Red Blood Cell (RBC) Count 4.67 mill/uL (4.20-5.40); White Blood Cell (WBC) Count 12.2 10x3/uL (4.8-10.8)
[2025-08-07 11:23] LABS: ALT (SGPT) 10 U/L (Less than 34); AST (SGOT) 22 U/L (11-34); Albumin 3.7 g/dL (3.1-4.5); Alkaline Phosphatase 101 U/L (40-110); Anion Gap 20 mmol/L (10-20); BUN (Urea Nitrogen) 15 mg/dL (9.8-20.1); Bilirubin, Total 0.6 mg/dL (0.3-1.2); Calc. Creatinine Clearance 0 mL/min (70-130); Calcium 9.3 mg/dL (7.8-10.44); Carbon Dioxide 21 mmol/L (23-31); Chloride 97 mmol/L (98-107); Globulin 4.3 g/dL (2.4-3.5); Glucose 208 mg/dL (83-110); Potassium 3.7 mmol/L (3.5-5.1); Sodium 134 mmol/L (136-145)
[2025-08-07 11:24] LABS: Troponin I 0.038 ng/mL (< 0.028)
[2025-08-07] MEDS ORDERED: Aspirin Chewable 81 MG TAB ONE (13:51)
[2025-08-07] MEDS ORDERED: Iopamidol 370 76% 100 ML VIAL ONE (15:30)
== END 2025-08-07 15:13 | disposition short-term general hospital (02) ==
LOC: BURERS 10:32
DX: R06.02 Shortness of breath (principal); R79.89 Other specified abnormal findings of blood chemistry; E11.9 Type 2 diabetes mellitus without complications; I10 Essential (primary) hypertension
CPT/HCPCS: 71046; 71275; 80053; 83880; 84484; 85025; 85379; 87428; 93005; 94760; J1885; J2405; J2550; 96374; 96375; Q9967